=== PATIENT | male | born 1990 | race Caucasian/White ===

== ENCOUNTER 2024-11-10 16:09 | Outpatient (CLI) | payer OTHER, MEDICAID, SELFPAY | END 2024-11-10 16:10 | disposition home or self-care (01) | LOC: NPINS 16:13 | PROVIDERS: PCP Family Medicine; Visit Provider Psychiatry & Neurology Neurology | DX: G80.9 Cerebral palsy, unspecified (principal); Z79.899 Other long term (current) drug therapy | CPT/HCPCS: 80159; 80175; 80177; 80339 ==